=== PATIENT | male | born 1985 | race Caucasian/White ===

== ENCOUNTER 2019-02-09 08:12 | Inpatient (IN) | payer BC ==
[~2019-02-09] VITALS: Ht 172.7 cm; Wt 90.7 kg
[2019-02-09 08:20] VITALS: BP 204/96
--- NOTE | 2019-02-09 08:23 | NUR ---
Patient ambulated to bed 7. RN evaluating patient at bedside.
--- NOTE | 2019-02-09 08:45 | NUR ---
Dr. Antony is evaluating the patient at bedside.
[2019-02-09] MEDS ORDERED: METOPROLOL 5 MG/5 ML VIAL IVP ONE (09:00)
[2019-02-09] MEDS ORDERED: ONDANSETRON 4 MG/2 ML VIAL IVP ONE (09:15)
--- NOTE | 2019-02-09 09:35 | NUR ---
x ray tech at bedside.
[2019-02-09 09:39] LABS: APPEARANCE,URINE CLEAR (CLEAR); BILIRUBIN,URINE NEGATIVE (NEGATIVE); BLOOD, URINE 1+ (NEGATIVE); COLOR,URINE YELLOW (YELLOW); LEUKOCYTE ESTERASE ,URINE NEGATIVE (NEGATIVE); NITRITE, URINE NEGATIVE (NEGATIVE); UGLUCOSE 1+ (NEGATIVE)
--- NOTE | 2019-02-09 09:53 | NUR ---
CRITICAL VALUE RECEIVED, DR BEGUM REQUESTING REDRAW
[2019-02-09 09:55] LABS: ALBUMIN 2.9 g/dL (3.4-5.0); ANION GAP 21.1 (8-16); CARBON DIOXIDE 19.5 mmol/L (21-32); POTASSIUM 3.6 mmol/L (3.5-5.1); TOTAL BILIRUBIN 0.4 mg/dL (0.0-1.0)
[2019-02-09 09:58] LABS: CREATININE 13.1 mg/dL (0.7-1.3)
--- NOTE | 2019-02-09 10:18 | NUR ---
Patient returned from CT scan. RN re-evaluating patient at bedside.
[2019-02-09 10:19] LABS: RBC,URINE 0-5 /HPF (0-5); URINE AMORPHOUS URATE 1+ /HPF (None Seen); WBC,URINE 0-5 /HPF (0-5)
[2019-02-09 10:40] LABS: BASOPHILS # (AUTO) 0.1 K/uL (0.00-0.22); BASOPHILS % (AUTO) 0.9 % (0.0-2.0); EOSINOPHILS # (AUTO) 0.3 K/uL (0-0.4); EOSINOPHILS % (AUTO) 4.8 % (0.0-4.0); LYMPHOCYTES # (AUTO) 0.9 K/uL (2.0-11.5); LYMPHOCYTES % (AUTO) 12.6 % (20.5-51.1); MEAN CORPUSCULAR HEMOGLOBIN 29 pg (27-31); MEAN CORPUSCULAR HGB CONC 35 g/dL (33-37); MEAN CORPUSCULAR VOLUME 82.6 fL (80-94); MONOCYTES # (AUTO) 0.4 K/uL (0.8-1.0); MONOCYTES % (AUTO) 6.4 % (1.7-9.3); NEUTROPHILS # (AUTO) 5.1 K/uL (1.8-7.7); NEUTROPHILS % (AUTO) 75.3 % (42.2-75.2); PLATELET COUNT (AUTO) 179 K/uL (140-450); RED BLOOD CELL COUNT(AUTO) 1.82 MIL/uL (4.20-6.10); WHITE BLOOD COUNT (AUTO) 6.8 K/uL (4.8-10.8)
[2019-02-09 10:47] LABS: HEMOGLOBIN 5.3 g/dL (12.0-18.0)
--- NOTE | 2019-02-09 10:49 | NUR ---
Huong gilbert in ED - 02/09/19 at 1050 by WAYNE CRITICAL VALUE RECEIVED, DR BEGUM WILL SEE PATIENT.
--- NOTE | 2019-02-09 10:51 | NUR ---
CRITICAL VALUE RECEIVED, DR BEGUM WILL SEE PATIENT.
[2019-02-09] MEDS ORDERED: CLON0.2T43 PO (10:59)
[2019-02-09] MEDS ORDERED: CARV12.5 PO (11:00)
[2019-02-09] MEDS ORDERED: INSU100S22 SC (11:00)
[2019-02-09] MEDS ORDERED: DILT-135 (11:00)
[2019-02-09] MEDS ORDERED: FERR-13 PO (11:00)
[2019-02-09] MEDS ORDERED: hydrALAZINE 20 MG/ML VIAL IVP ONE (11:10)
--- NOTE | 2019-02-09 11:17 | NUR ---
Dr. Antony is re-evaluating the patient at bedside.
[2019-02-09] MEDS ORDERED: LORazepam 2 MG/ML VIAL IVP PRN (12:25)
[2019-02-09] MEDS ORDERED: MORPHINE SULFATE 2 MG/ML SYR IVP PRN (12:25)
[2019-02-09] MEDS ORDERED: MORPHINE SULFATE 4 MG/ML SYR IVP PRN (12:25)
[2019-02-09] MEDS ORDERED: ACETAMINOPHEN 325 MG TAB PO PRN (12:25)
[2019-02-09] MEDS ORDERED: ONDANSETRON 4 MG/2 ML VIAL IVP PRN (12:25)
[2019-02-09] MEDS ORDERED: ZOLPIDEM 5 MG TAB PO PRN (12:30)
--- NOTE | 2019-02-09 12:44 | NUR ---
Dr. Alvarenga evaluating patient at bedside.
[2019-02-09 13:00] VITALS: BP 190/90
[2019-02-09] MEDS ORDERED: DEXTROSE 50% 50 ML SYR IVP PRN (13:00)
--- NOTE | 2019-02-09 13:00 | NUR ---
RECEIVED REPORT FROM ED NURSE ZEV FOR CONTINUITY OF CARE. PT IS AAOX4, AMBULATORY AND COOPERATIVE. PT DENIES PAIN, SOB, OR CHEST PAIN. PT HAS LEFT HAND 20G IV TO INFUSE BLOOD LATER TODAY. PT SKIN IS INTACT. EXPLAINED POC TO PT AND PT VERBALIZED UNDERSTANDING. BED IN LOW POSITION, CALL LIGHT WITHIN REACH.
--- NOTE | 2019-02-09 13:05 | NUR ---
Patient will be admitted to care of DR MARTINI. Admited to TELEMETRY. Will go to room 19A. Belongings list completed. Report to GILBERTO.
[2019-02-09] MEDS ORDERED: BUMETANIDE 1 MG/4 ML VIAL IV SCH (13:30)
--- NOTE | 2019-02-09 15:06 | NUR ---
PT RESTING IN BED WITH FAMILY AT BEDSIDE. ALL NEEDS MET. WILL CONTINUE TO ROUND FREQUENTLY ON PT.
[2019-02-09] MEDS ORDERED: METOPROLOL 5 MG/5 ML VIAL IV PRN (15:40)
[2019-02-09 16:00] VITALS: BP 180/87
[2019-02-09] MEDS: BLOOD GLUCOSE MONITORING 1 DEV DEV FS SCH ×2 (16:30→20:05)
[2019-02-09] MEDS ORDERED: ALUMINUM HYD/MAG/SIMETHICONE 30 ML UDC PO PRN (17:15)
--- NOTE | 2019-02-09 17:16 | NUR ---
PT RESTING IN BED. BLOOD TRANSFUSION RUNNING AT 120ML/HR. PT TOLERATING WELL. PT DENIES ITCHING, CHILLS, BACK ACHE, PAIN OR SOB AT THIS TIME. INSTRUCTED PT TO CALL IF ANY SYMPTOMS ARISE OR IF IV PUMP BEEPS. PT VERBALIZED UNDERSTANDING. WILL CONTINUE TO ROUND FREQUENTLY ON PT.
[2019-02-09] MEDS: FERROUS SULFATE 325 MG TABEC PO SCH ×2 (17:37→20:05)
[2019-02-09] MEDS: DILTIAZEM 30 MG TAB PO SCH (17:37)
--- NOTE | 2019-02-09 19:20 | NUR ---
RECEIVED BEDSIDE REPORT FROM DAY SHIFT NURSE. PATIENT IS AWAKE, ALERT, AND COOPERATIVE. RESPIRATION EVEN UNLABORED ON ROOM AIR. NO DISTRESS NOTED. SKIN IS WARM AND DRY. IV PATENT AND INTACT. BLOOD TRANSFUSION JUST ENDED. DENIES PAIN. PLAN OF CARE WAS DISCUSSED. ALL SAFETY MEASURES IN PLACE. BED IS AT LOW POSITION. CALL LIGHT WITHIN REACH AND VERBALIZE ITS USE. WILL CONTINUE TO MONITOR.
--- NOTE | 2019-02-09 19:48 | NUR ---
ENDORSED PT TO INFLATED PAD BUFFER FOR CONTINUITY OF CARE. PT IN STABLE CONDITION AT THIS TIME.
[2019-02-09 20:00] VITALS: BP 192/84
--- NOTE | 2019-02-09 20:00 | NUR ---
ALL SCHEDULED MEDS WERE GIVEN PER ORDER. PATIENT WILL RECEIVED 2ND BAG OF BLOOD TRANSFUSION. BP IS HIGH WILL NOTIFY THE MD. WILL CONTINUE TO MONITOR.
[2019-02-09] MEDS: cloNIDine 0.1 MG TAB PO SCH (20:04)
[2019-02-09] MEDS: CARVEDILOL 12.5 MG TAB PO SCH (20:05)
--- NOTE | 2019-02-09 20:30 | NUR ---
2ND BAG OF TRANSFUSION STARTED. NO ASE NOTED. WILL CONTINUE TO MONITOR.
--- NOTE | 2019-02-09 21:30 | NUR ---
2ND BAG OF TRANSFUSION STARTED. NO ASE NOTED. WILL CONTINUE TO MONITOR. Addendum: 02/09/19 at 2213 by Lisa Hodgson RN WRONG TIME
[2019-02-09] MEDS ORDERED: amLODIPine 5 MG TAB PO SCH (22:00)
--- NOTE | 2019-02-09 22:13 | NUR ---
CHECKED ON PATIENT. PATIENT IN BED WATCHING TV RESPIRATION EVEN UNLABORED ON ROOM AIR. BLOOD TRANSFUSION STILL BEING INFUSED. NO DISTRESS NOTED. WILL CONTINUE TO MONITOR.
--- NOTE | 2019-02-09 23:40 | NUR ---
2ND UNIT OF BLOOD TRANSFUSION DONE. NO ASE NOTED. WILL INFUSED THE 3RD UNIT PER ORDER. WILL CONTINUE TO MONITOR.
[2019-02-10] VITALS: BP 152/75
--- NOTE | 2019-02-10 | NUR ---
VITALS WERE TAKEN. PATIENT IN STABLE CONDITION. PATIENT COMPLAINED OF NOT BEING ABLE TO SLEEP FOR THE PAST FEW DAYS. PATIENT ASK FOR SLEEPING AID. PRN AMBIEN GIVEN PER ORDER. WILL CONTINUE TO MONITOR.
--- NOTE | 2019-02-10 00:35 | NUR ---
3RD UNIT OF BLOOD STARTED. WILL CONTINUE TO MONITOR.
--- NOTE | 2019-02-10 02:30 | NUR ---
CHECKED ON PATIENT. PATIENT SLEEPING RESPIRATION EVEN UNLABORED ON ROOM AIR. NO DISTRESS NOTED. WILL CONTINUE TO MONITOR.
--- NOTE | 2019-02-10 03:30 | NUR ---
BLOOD TRANSFUSION ENDED. NO ADVERSE REACTION FROM THE BLOOD. WILL CONTINUE TO MONITOR
[2019-02-10 04:00] VITALS: BP 158/68
--- NOTE | 2019-02-10 04:01 | NUR ---
VITALS WERE TAKEN. PATIENT IN STABLE CONDITION. NO DISTRESS NOTED. WILL CONTINUE TO MONITOR.
[2019-02-10] MEDS: DILTIAZEM 30 MG TAB PO SCH ×5 (06:12→23:59)
[2019-02-10] MEDS: BLOOD GLUCOSE MONITORING 1 DEV DEV FS SCH ×4 (06:32→21:30)
[2019-02-10 06:42] LABS: ALBUMIN 2.5 g/dL (3.4-5.0); MAGNESIUM 1.5 mg/dL (1.8-2.4); TOTAL BILIRUBIN 0.6 mg/dL (0.0-1.0)
--- NOTE | 2019-02-10 07:18 | NUR ---
ENDORSED PATIENT TO DAY SHIFT NURSE. PATIENT IN STABLE CONDITION.
--- NOTE | 2019-02-10 07:19 | NUR ---
Received bedside report from pm nurse Gonzalez. Pt sitting up in bed, no signs of distress, no c/o discomfort. Left hand IV saline lock intact & asymptomatic. Call light within reach.
[2019-02-10 07:20] LABS: BASOPHILS % (AUTO) 0.8 % (0.0-2.0); EOSINOPHILS # (AUTO) 0.2 K/uL (0-0.4); EOSINOPHILS % (AUTO) 2.5 % (0.0-4.0); HEMATOCRIT 21.7 % (36-52); HEMOGLOBIN 7.5 g/dL (12.0-18.0); LYMPHOCYTES % (AUTO) 14.8 % (20.5-51.1); MEAN CORPUSCULAR HEMOGLOBIN 29 pg (27-31); MEAN CORPUSCULAR HGB CONC 35 g/dL (33-37); MEAN CORPUSCULAR VOLUME 83.7 fL (80-94); MONOCYTES # (AUTO) 0.5 K/uL (0.8-1.0); MONOCYTES % (AUTO) 8.3 % (1.7-9.3); NEUTROPHILS # (AUTO) 4.8 K/uL (1.8-7.7); NEUTROPHILS % (AUTO) 73.6 % (42.2-75.2); PLATELET COUNT (AUTO) 163 K/uL (140-450); RED BLOOD CELL COUNT(AUTO) 2.59 MIL/uL (4.20-6.10); RED CELL DISTRIBUTION WIDTH 14.5 % (11.6-13.7); WHITE BLOOD COUNT (AUTO) 6.6 K/uL (4.8-10.8)
[2019-02-10 07:24] LABS: CARBON DIOXIDE 19.8 mmol/L (21-32); CREATININE 13.2 mg/dL (0.7-1.3); POTASSIUM 3.7 mmol/L (3.5-5.1)
[2019-02-10 07:25] LABS: ANION GAP 18.9 (8-16)
--- NOTE | 2019-02-10 07:45 | NUR ---
Spoke to Dr Dunn on the phone re: lab results (BUN - 1.4, Cr - 13.2, Mg - 1.5) New order received for Mg-rider. Noted & carried out. Physician to discuss labs with pt during hospital visit today.
[2019-02-10 08:00] VITALS: BP 184/91
[2019-02-10] MEDS ORDERED: MAG SULF 2000 MG/WATER PREMIX 50 ML IV SCH ×2 (08:00→11:00)
[2019-02-10] MEDS: CARVEDILOL 12.5 MG TAB PO SCH ×2 (08:21→21:53)
[2019-02-10] MEDS: cloNIDine 0.1 MG TAB PO SCH ×2 (08:21→21:53)
[2019-02-10] MEDS: FERROUS SULFATE 325 MG TABEC PO SCH ×4 (08:21→21:52)
[2019-02-10] MEDS ORDERED: amLODIPine 5 MG TAB PO SCH (09:00)
--- NOTE | 2019-02-10 09:18 | NUR ---
PATIENT HAS BEEN SCREENED AND CATEGORIZED HIGH NUTRITION RISK. PATIENT WILL BE SEEN WITHIN 1-2 DAYS OF ADMISSION. 02/10/19-02/11/[address]
--- NOTE | 2019-02-10 09:39 | NUR ---
Dr Alvarenga spoke with pt & states pt has agreed to hemodialysis but is requesting to be transferred to [facility] d/t insurance issues. Per Dr Alvarenga, if hemodialysis is approved in facility, will need tunneled central cath placement with surgeon. Will need to keep pt NPO until further notice. Pt verbalized understanding & agree with POC. Social service present and aware of pt needs at this time.
[2019-02-10] MEDS: SODIUM BICARBONATE 650 MG TAB PO SCH ×2 (09:45→21:52)
[2019-02-10] MEDS: cloNIDine 0.1 MG TAB PO PRN ×2 (10:14→16:39)
--- NOTE | 2019-02-10 10:51 | NUR ---
Watch Inspector Final Movement Note: Basic Screen: Yes High Risk DC Screen [place]: CIERRA [place]ings[place] Relationship: BROTHER Pre-Admission Living Arrangements: Lives with Other Prior ADL Independent Current Home Health Name/Tel: N/A Current DME/02 Name/Tel: N/A Current Hospice Name/Tel: N/A Current Dialysis Name/Tel: N/A Healthcare Decision Maker: Patient Advance Directive No - REFUSED Physician Orders for Life Sustaining Treatment Form No Patient/Family Have Educational Needs No Information Taught: Advance Directive Community Resources Person Taught: Patient Teaching Tools: Verbal Factors Affecting Learning: None Participation Level: Refused Evaluation: Verbalizes Understanding Needs Additional Education: No Discipline: Case Mgt/Social Svcs Tentative Discharge Plan/Destination: No Needs Identified Will require assistance post discharge: No Referred to Resource Specialist: No Tentative Discharge Plan Summary: Patient is a 34 year old male admitted for severe anemia. Patient was admitted from home. Patient has past medical hx of CHF, HTN, chronic renal insuff, and diabetes. SW verified demographics with patient. Patient stated his PCP is Dr. Radha Hodge and he was last seen six months ago. Patient denied mental health history, SI/HI, and substance abuse history. Patient's tentative plan after discharge is to return home. No further needs identified. Signature: ELOISA Khoury Date: Feb 10, 2019 Time: 10:50
[2019-02-10 12:00] VITALS: BP 158/84
[2019-02-10] MEDS: INSULIN LISPRO SLIDING SCALE 100 UNITS/ML VIAL SUBQ PRN ×2 (12:22→21:57)
--- NOTE | 2019-02-10 12:37 | NUR ---
Methods Engineer Note: Per , patient is concerned about his health insurance not covering dialysis treatment during hospitalization at [facility] and prefers to be transferred to [facility], I informed both Methods Engineer Frank and Warehouse Pricing And Inventory Clerk Melvi of above information, Methods Engineer and/or Warehouse Pricing And Inventory Clerk will follow up regarding patient's concern. Addendum: 02/10/19 at 1337 by Frank Chaparro SS SHAQUILLE spoke with patient regarding dialysis treatment. SHAQUILLE explained to patient that [facility] is contracted with [facility], per Fan Balancer Lena. Patient agreed to receive dialysis. SHAQUILLE informed Charge Nurse Estuardo.
--- NOTE | 2019-02-10 14:00 | NUR ---
02/10/19 RD INITIAL ASSESSMENT COMPLETED PLEASE REFER TO NUTRITION ASSESSMENT UNDER CARE ACTIVITY FOR ESTIMATED NUTRITIONAL NEEDS. 1. CONTINUE NPO TOLERATED 2. IF/WHEN MEDICALLY STABLE TO BEGIN NUTRITION CONSIDER ADVANCE DIET TOLERATED TO 60G CCHO, RENAL DIET 3. RECOMMEND NEPRO BID IF/WHEN MEDICALLY STABLE TO BEGIN NUTRITION 4. NUTRITION EDUCATION ON RENAL/DM MANAGEMENT WAS GIVEN TO PATIENT 5. RD TO FOLLOW-UP 2-3 DAYS, HIGH RISK NAINA MENDOZA, RD
--- NOTE | 2019-02-10 15:00 | NUR ---
Received phone call from Dr. Fam with request to obtain consent for tunneled dialysis permacath placement. Per dr, will schedule procedure this pm. Pt agree with POC.
--- NOTE | 2019-02-10 15:38 | NUR ---
DC PLANNING 34 YRS OLD MALE PATIENT ADMITTED FROM HOME WITH A DX OF SEVER ANEMIA HEMOGLOBIN 5 . PT HAS A HX OF CAD REFUSED HEMODIALYSIS ,DM AND CHF. TRANSFUSED 3 UNITS PRBC , NEPHRO EVALUATION. DC PLAN WITH RECOMMENDATION OF FACILITIES FLIGHT CHECK PILOT. CM TO FOLLOW Addendum: 02/10/19 at 1558 by Lena Graham CM Sw was informed about pt's concerns in regards to coverage at [facility]. Trang reviewed BAR notes, HUMBERTO and health plan notified according to the notes at . Trang called this number which is for [facility]; spoke with JESUS Ravi who stated this is not their member and they have record of any admission. Trang met with the admitting team who re-verified patient's insurance and clarified the patient is assigned to [facility] and the number to call is . Trang called [employer] and spoke to Tiffanie, reference #[id number] who indicated the patient doesn't have ON benefits and if admitted due to an emergency services will be covered at the tier 1 level (100%). Trang inquired if clinicals were received and/or an auth was issued. Sw was transferred to the pre-auth department ; spoke with Cononr who stated they don't have record of the pt's admission to [place] and subsequently there's no auth on file. Connor is requesting a face sheet to be faxed to to initiate the process. Remote team informed. Lena Grhaam, [facility] Ext [phone] Addendum: 02/11/19 at 1118 by Melvi Chen CM DC PLANNING CALLED [facility] [phone] SPOKE WITH LUPIS , STATED [facility] GET 100% COVERAGE AND NO NEED TO TRANSFER TO ANOTHER [facility] AUTH# [id number] FOR HOSPITAL STAY. AUTHORIZATION DEPARTMENT NUMBER [id number] Addendum: 02/11/19 at 1130 by Melvi Chen CM DC PLANNING HEMODIALYSIS DONE YESTERDAY 02/10/19 WITH ANNA CATH. TUNNELED CATH TO BE INSERTED BY DR JUAN A MIJARES AND HD PER ENDER BYRD PLAN TO ARRANGE OUTPATIENT DIALYSIS WITH IVANA LEE TO F/U Addendum: 02/11/19 at 1421 by Melvi Chen CM DC PLANNING PER DR NEVAREZ IT CAN BE ARRANGED WITH [facility]. SPOKE WITH KALEB AT [facility] AND FAXED ALL THE PAPER WORK CM TO FOLLOW Addendum: 02/11/19 at 1449 by Melvi Chen CM DC PLANNING: RECEIVED A CALL FROM KALEB STATED PT IS ACCEPTED AT [facility] [address] [place] [id number] SCHEDULE M-W- FROM 1:45 -5:45 PHONE NUMBER [phone] FACILITIES FLIGHT CHECK PILOT IS DR CADENA .
[2019-02-10 16:00] VITALS: BP 174/91
[2019-02-10] MEDS ORDERED: BUPIVACAINE-MPF/EPI 0.25% 30 ML VIAL INJ ONE (16:50)
[2019-02-10] MEDS ORDERED: LIDOCAINE/EPI MPF 1%1:200000 30 ML VIAL INJ ONE (16:50)
--- NOTE | 2019-02-10 17:00 | NUR ---
Pt left unit via hospital bed for permacath placement. Informed OR nurse Lucinda & Fatou that pt had elevated BP & received clonidine @ 1639, need monitoring of BP. Pt aaox4 upon departure from unit, no signs of distress.
--- NOTE | 2019-02-10 17:15 | NUR ---
Received phone call from Fatou OR nurse stating tunneled cath placement is discontinued by Dr Fam, & will place George cath instead. Pt still in Periop.
[2019-02-10] MEDS ORDERED: LORazepam 2 MG/ML VIAL ONE (17:22)
[2019-02-10] MEDS ORDERED: LORazepam 2 MG/ML VIAL IVP SCH (17:38)
--- NOTE | 2019-02-10 18:10 | NUR ---
Pt came back to room 119B via hospital bed. Report received from OR nurse Fatou. Pt slightly drowsy, oriented x4. Right jugular George cath 2-lumen in place. Left hand IV saline lock intact & asymptomatic. Call light within reach.
--- NOTE | 2019-02-10 19:00 | NUR ---
Received hemodialysis order from Dr Alvarenga. Dialysis nurse at bedside notified & will initiate tx. Pt verbalize understanding of procedure & agree with POC.
--- NOTE | 2019-02-10 19:20 | NUR ---
Report given to pm nurse Lisa. Pt resting in bed, no signs of distress, dialysis nurse at bedside to initiate tx. Call light within reach.
--- NOTE | 2019-02-10 19:25 | NUR ---
RECEIVED BEDSIDE REPORT FROM DAY SHIFT NURSE. PATIENT IS AWAKE, ALERT, AND COOPERATIVE. RESPIRATION EVEN UNLABORED ON ROOM AIR. NO DISTRESS NOTED. SKIN IS WARM AND DRY. IV PATENT AND INTACT. ANNA CATHETER RIGHT SIDE NOTED. PATIENT IS ABOUT TO GET DIALYSIS. PLAN OF CARE WAS DISCUSSED. ALL SAFETY MEASURES IN PLACE. BED IS AT LOW POSITION. CALL LIGHT WITHIN REACH AND VERBALIZES ITS USE. WILL CONTINUE TO MONITOR.
[2019-02-10 20:00] VITALS: BP 182/88
--- NOTE | 2019-02-10 20:10 | NUR ---
INITIAL ASSESSMENT DONE. VITALS WERE TAKEN. PATIENT IS GETTING DIALYSIS TREATMENT. DIALYSIS NURSE AT BEDSIDE. NO DISTRESS NOTED. WILL CONTINUE TO MONITOR.
--- NOTE | 2019-02-10 21:45 | NUR ---
DIALYSIS DONE. PATIENT TOLERATED IT WELL. PATIENT OUTPUT 500 ML.
--- NOTE | 2019-02-10 21:55 | NUR ---
ALL SCHEDULED MEDS WERE GIVEN PER ORDER. NO ASE NOTED. WILL CONTINUE TO MONITOR.
--- NOTE | 2019-02-10 22:44 | NUR ---
PATIENT IS BLEEDING FROM ANNA CATHETER. APPLIED PRESSURE AND CHANGED DRESSING.
--- NOTE | 2019-02-10 22:45 | NUR ---
DR. VELAZCO AT BEDSIDE ASSESSING PATIENT ANNA CATHETER. BLEEDING STOP. WILL CONTINUE TO MONITOR.
--- NOTE | 2019-02-10 22:58 | NUR ---
PATIENT COMPLAINED OF PAIN FROM THE ANNA CATHETER SITE 09/08. PRN PAIN MEDS ADMINISTERED PER ORDER. WILL CONTINUE TO MONITOR.
--- NOTE | 2019-02-10 23:10 | NUR ---
CHECKED PATIENT. ANNA CATHETER. PATIENT DRESSING NOTED WITH MODERATE SANGUINEOUS. CHANGED DRESSING AND APPLIED PRESSURE. WILL CONTINUE TO MONITOR.
[2019-02-11] VITALS (9 sets, daily range): BP systolic 142–198; BP diastolic 75–99
--- NOTE | 2019-02-11 | NUR ---
VITALS WERE TAKEN. PATIENT IN STABLE CONDITION. WILL CONTINUE TO MONITOR.
--- NOTE | 2019-02-11 01:53 | NUR ---
CHECKED ON PATIENT. PATIENT SLEEPING RESPIRATION EVEN UNLABORED ON ROOM AIR. NO DISTRESS NOTED. CHECKED ANNA CATHETER SITE. MINIMAL DRAINAGE NOTED. WILL CONTINUE TO MONITOR.
--- NOTE | 2019-02-11 04:00 | NUR ---
VITALS WERE TAKEN. PATIENT IN STABLE CONDITION. NO DISTRESS NOTED. WILL CONTINUE TO MONITOR.
[2019-02-11] MEDS: DILTIAZEM 30 MG TAB PO SCH (06:00)
[2019-02-11 06:07] LABS: HEPATITIS B SURFACE ANTIBODY Reactive (.); HEPATITIS B SURFACE ANTIGEN Negative (Negative)
--- NOTE | 2019-02-11 06:22 | NUR ---
PATIENT IN BED WATCHING TV RESPIRATION EVEN UNLABORED ON ROOM AIR. NO DISTRESS NOTED. WILL CONTINUE TO MONITOR.
[2019-02-11] MEDS: BLOOD GLUCOSE MONITORING 1 DEV DEV FS SCH ×4 (06:37→21:08)
--- NOTE | 2019-02-11 07:11 | NUR ---
ENDORSED PATIENT TO DAY SHIFT NURSE. PATIENT IN STABLE CONDITION
--- NOTE | 2019-02-11 07:15 | NUR ---
Received report from pm nurse Gonzalez. Pt sitting up in bed, aaox4, no signs of distress. Right jugular George cath in place with min sanguineous drainage present in dressing. Call light within reach. Will cont to monitor.
[2019-02-11] MEDS: CARVEDILOL 12.5 MG TAB PO SCH ×2 (07:33→21:06)
[2019-02-11] MEDS: cloNIDine 0.1 MG TAB PO SCH ×2 (07:37→21:08)
--- NOTE | 2019-02-11 07:40 | NUR ---
0900 BP meds clonidine & carvedilol administered for BP 198/99. Pt sitting up in chair at bedside, c/o 2/10 headache. Minimized stimulation by dimming lights in room and providing quiet environment. Call light within reach. Will cont to monitor.
--- NOTE | 2019-02-11 08:00 | NUR ---
Report given to Elida QEUSADA.
--- NOTE | 2019-02-11 08:01 | NUR ---
RECEIVED BEDSIDE REPORT FROM DANIELLE. PATIENT IS AWAKE, ALERT AND ORIENTEDX4. NO SIGNS OF DISTRESS ON RA. SKIN IS INTACT. IV ON L HAND 20G SL. CLEAN, DRY AND INTACT. YAN CASTILLO CATH. CLEAN, DRY AND INTACT. PATIENT IS AMBULATORY. CONTINENT. ABLE TO MAKE NEEDS KNOWN BED IN LOW POSITION. CALL LIGHT WITHIN REACH, WILL CONTINUE TO MONITOR THE PATIENT.
[2019-02-11] MEDS: SODIUM BICARBONATE 650 MG TAB PO SCH (08:29)
[2019-02-11] MEDS: FERROUS SULFATE 325 MG TABEC PO SCH ×4 (08:29→21:08)
--- NOTE | 2019-02-11 08:35 | NUR ---
ADMINISTERED MEDS AND PRN NAUSEA MED. PATIENT FEELS NAUSEATED. EDUCATED ON SIDE EFFECTS. WILL CONTINUE TO MONITOR THE PATIENT. PATIENT SITTING IN CHAIR AT THIS TIME
[2019-02-11 09:08] LABS: BASOPHILS # (AUTO) 0.1 K/uL (0.00-0.22); BASOPHILS % (AUTO) 1.2 % (0.0-2.0); EOSINOPHILS # (AUTO) 0.2 K/uL (0-0.4); EOSINOPHILS % (AUTO) 2.8 % (0.0-4.0); HEMATOCRIT 23.2 % (36-52); HEMOGLOBIN 8.2 g/dL (12.0-18.0); LYMPHOCYTES # (AUTO) 0.5 K/uL (2.0-11.5); LYMPHOCYTES % (AUTO) 6.1 % (20.5-51.1); MEAN CORPUSCULAR HEMOGLOBIN 30 pg (27-31); MEAN CORPUSCULAR HGB CONC 35 g/dL (33-37); MEAN CORPUSCULAR VOLUME 83.4 fL (80-94); MONOCYTES # (AUTO) 0.7 K/uL (0.8-1.0); MONOCYTES % (AUTO) 7.5 % (1.7-9.3); NEUTROPHILS # (AUTO) 7.1 K/uL (1.8-7.7); NEUTROPHILS % (AUTO) 82.4 % (42.2-75.2); PLATELET COUNT (AUTO) 185 K/uL (140-450); RED BLOOD CELL COUNT(AUTO) 2.78 MIL/uL (4.20-6.10); RED CELL DISTRIBUTION WIDTH 14.9 % (11.6-13.7); WHITE BLOOD COUNT (AUTO) 8.7 K/uL (4.8-10.8)
[2019-02-11 09:24] LABS: ANION GAP 11.8 (8-16); CARBON DIOXIDE 27.8 mmol/L (21-32); POTASSIUM 3.6 mmol/L (3.5-5.1)
[2019-02-11 09:28] LABS: CREATININE 9.7 mg/dL (0.7-1.3); TOTAL BILIRUBIN 0.5 mg/dL (0.0-1.0)
[2019-02-11 09:29] LABS: ALBUMIN 2.6 g/dL (3.4-5.0)
--- NOTE | 2019-02-11 09:29 | NUR ---
B/P STILL ELEVATED. WILL REASSESS B/P AGAIN AND GIVE PRN B/P MED NEEDED.
--- NOTE | 2019-02-11 10:23 | NUR ---
ANNA CATH IS BLOODY. CHANGED THE DRESSING USING STERILE TECHNIQUE. PATIENT TOLERATED WELL
--- NOTE | 2019-02-11 10:55 | NUR ---
SPOKE TO DR MALHOTRA HE SAID TO CALL THE DIALYSIS NURSE TO DO DIALYSIS TODAY FOR PT. [facility], SHE SAID SHE WILL HAVE SOMEONE DO DIALYSIS SOON
[2019-02-11] MEDS: cloNIDine 0.1 MG TAB PO PRN (12:45)
[2019-02-11] MEDS: INSULIN LISPRO SLIDING SCALE 100 UNITS/ML VIAL SUBQ PRN ×3 (12:47→21:11)
--- NOTE | 2019-02-11 12:48 | NUR ---
ADMINISTERED MEDS. PATIENT TOLERATED WELL. EDUCATED ON SIDE EFFECTS. WILL CONTINUE TO MONITOR THE PATIENT. DIALYSIS NURSE SAID SHE WILL BE HERE AT 1500
--- NOTE | 2019-02-11 14:01 | NUR ---
PATIENT IN NO DISTRESS. WILL CONTINUE TO MONITOR
--- NOTE | 2019-02-11 15:01 | NUR ---
GAVE BEDSIDE REPORT TO DANIELLE. PATIENT IN STABLE CONDITION
--- NOTE | 2019-02-11 15:02 | NUR ---
Received report from Elida QUESADA. Pt resting in bed, no signs of distress, no c/o discomfort/pain. Dialysis nurse arrived at bedside to initiate treatment. Call light within reach.
--- NOTE | 2019-02-11 16:20 | NUR ---
Received telephone order from Dr Dunn for enalapril & metoprolol d/t elevated BP. Orders noted & carried out. Pt currently resting in bed, no c/o discomfort, hemodialysis ongoing with dialysis nurse at bedside.
[2019-02-11] MEDS ORDERED: METOPROLOL 5 MG/5 ML VIAL IV SCH (16:25)
[2019-02-11] MEDS ORDERED: ENALAPRIL 10 MG TAB PO SCH (16:43)
[2019-02-11] MEDS ORDERED: amLODIPine 5 MG TAB PO SCH (18:35)
[2019-02-11] MEDS ORDERED: CARVEDILOL 12.5 MG TAB PO SCH (18:35)
--- NOTE | 2019-02-11 18:35 | NUR ---
Received orders from Dr Chandler re: persistent HTN. All orders noted & carried out. Pt currently resting in bed, no c/o pain/discomfort, no signs of distress. Call light within reach. Right jugular George cath dressing with min sanguineous drainage. Dialysis nurse in unit notified & assessed site. Per dialysis nurse, no active bleeding at this time.
--- NOTE | 2019-02-11 19:10 | NUR ---
Report given to pm nurse Kyung.
--- NOTE | 2019-02-11 19:15 | NUR ---
RECEIVED FROM AM RN SITTING UP IN A CHAIR. NO SOB. NO COMPLAINTS OF ANY PAIN. ANNA CATHETER TO RIJ IN PLACE AND NO ACTIVE BLEEDING NOTED. CARE PLANS FOR THE NIGHT DISCUSSED WITH HIM AND CALL LIGHT USE DISCUSSED WITH HIM TOO. ENCOURAGE TO USE CALL LIGHT FOR ANY HELP HE MAY NEED OR IF IN PAIN.
--- NOTE | 2019-02-11 22:00 | NUR ---
CHECKED ON PT. AND SITTING IN CHAIR. STATED HE WANTS TO SIT WATCHING TV. NOT READY TO SLEEP PER PT. CALL LIGHT WITH IN REACH. NO SOB. TELEMETRY MONITORING.
[2019-02-11] MEDS ORDERED: hydrALAZINE 20 MG/ML VIAL IVP PRN (22:10)
--- NOTE | 2019-02-12 | NUR ---
SLEEPING AT THIS TIME. VITAL SIGNS TAKEN. NO COMPLAINTS OF ANY PAIN DONE. CALL LIGHT WITH IN REACH.
[2019-02-12 01:36] VITALS: BP 131/86
--- NOTE | 2019-02-12 01:38 | NUR ---
SLEEPING AT THIS TIME. NO RESTLESSNESS NOTED.
[2019-02-12 04:16] VITALS: BP 155/79
--- NOTE | 2019-02-12 05:35 | NUR ---
PT. SLEEPING WELL. BLOOD SUGAR CHECKED . NO S/S OF HYPOGLYCEMIA. DRESSING TO RIJ REFUSED BY PT. RT "IT WILL BE REMOVED LATER ANYWAY" CHARGE NURSE AWARE.
[2019-02-12 06:59] LABS: BASOPHILS # (AUTO) 0.1 K/uL (0.00-0.22); EOSINOPHILS # (AUTO) 0.4 K/uL (0-0.4); EOSINOPHILS % (AUTO) 5.8 % (0.0-4.0); HEMATOCRIT 21.3 % (36-52); HEMOGLOBIN 7.3 g/dL (12.0-18.0); LYMPHOCYTES # (AUTO) 1.1 K/uL (2.0-11.5); LYMPHOCYTES % (AUTO) 16.5 % (20.5-51.1); MEAN CORPUSCULAR HEMOGLOBIN 29 pg (27-31); MEAN CORPUSCULAR HGB CONC 34 g/dL (33-37); MEAN CORPUSCULAR VOLUME 84.5 fL (80-94); MONOCYTES # (AUTO) 0.8 K/uL (0.8-1.0); MONOCYTES % (AUTO) 11.9 % (1.7-9.3); NEUTROPHILS # (AUTO) 4.4 K/uL (1.8-7.7); NEUTROPHILS % (AUTO) 64.8 % (42.2-75.2); PLATELET COUNT (AUTO) 167 K/uL (140-450); RED BLOOD CELL COUNT(AUTO) 2.52 MIL/uL (4.20-6.10); RED CELL DISTRIBUTION WIDTH 14.9 % (11.6-13.7); WHITE BLOOD COUNT (AUTO) 6.8 K/uL (4.8-10.8)
--- NOTE | 2019-02-12 07:14 | NUR ---
RECEIVED REPORT FROM NIGHT NURSE. PT AAOX4 SITTING IN CHAIR WATCHING TV. DENIES PAIN, NO DISTRESS NOTED. R NECK ANNA CATH DRESSING SOILED WITH BLOOD, PLAN IS TO REMOVE AND INSERT TUNNEL CATH AT 1245 TODAY. RESPIRATIONS EVEN AND UNLABORED ON ROOM AIR, CLEAR BREATH SOUNDS. SKIN INTACT. IV SIGHT PATENT AND ASYMPTOMATIC SALINE LOCKED IN L HAND 20G. SAFETY MEASURES IN PLACE. BED IN LOW POSITION. CALL LIGHT WITHIN REACH. WILL CONTINUE TO MONITOR.
[2019-02-12 07:26] LABS: ANION GAP 12.1 (8-16); CARBON DIOXIDE 28.1 mmol/L (21-32); POTASSIUM 3.2 mmol/L (3.5-5.1)
[2019-02-12 07:27] LABS: ALBUMIN 2.4 g/dL (3.4-5.0); CREATININE 7.2 mg/dL (0.7-1.3); TOTAL BILIRUBIN 0.5 mg/dL (0.0-1.0)
[2019-02-12] MEDS: BLOOD GLUCOSE MONITORING 1 DEV DEV FS SCH ×3 (07:30→15:47)
[2019-02-12 07:58] VITALS: BP 163/76
[2019-02-12] MEDS: cloNIDine 0.1 MG TAB PO SCH (08:49)
[2019-02-12] MEDS: FERROUS SULFATE 325 MG TABEC PO SCH ×2 (08:50→12:00)
[2019-02-12] MEDS: CARVEDILOL 12.5 MG TAB PO SCH (08:50)
--- NOTE | 2019-02-12 08:54 | NUR ---
MEDICATIONS ADMINISTERED PER ORDER. PT TOLERATED WELL. NO DISTRESS NOTED. DENIES PAIN AT THIS TIME. WILL CONTINUE TO MONITOR.
[2019-02-12] MEDS ORDERED: amLODIPine 5 MG TAB PO SCH ×2 (09:00)
[2019-02-12] MEDS ORDERED: ENALAPRIL 10 MG TAB PO SCH (09:00)
[2019-02-12] MEDS ORDERED: CARVEDILOL 12.5 MG TAB PO SCH (09:00)
[2019-02-12] MEDS ORDERED: KCL 20 MEQ/WATER INJ PREMIX 100 ML IV SCH (11:00)
--- NOTE | 2019-02-12 11:30 | NUR ---
PT TRANSPORTED OFF UNIT AT THIS TIME FOR PROCEDURE IN OR.
[2019-02-12] MEDS ORDERED: LIDOCAINE 1% 500 MG/50 ML VIAL ONE (11:33)
[2019-02-12] MEDS ORDERED: BUPIVACAINE-MPF/EPI 0.25% 30 ML VIAL INJ ONE (11:33)
[2019-02-12] MEDS ORDERED: fentaNYL 0.05 MG/ML VIAL ONE (11:50)
[2019-02-12 12:00] VITALS: BP 142/70
[2019-02-12] MEDS ORDERED: PROPOFOL 200 MG/20 ML VIAL IV ONE (12:04)
[2019-02-12] MEDS ORDERED: BLOOD GLUCOSE MONITORING 1 DEV DEV FS SCH (12:25)
[2019-02-12] MEDS ORDERED: HYDROmorphone 1 MG/ML AMP IVP PRN (12:25)
[2019-02-12] MEDS ORDERED: ONDANSETRON 4 MG/2 ML VIAL IVP PRN (12:25)
[2019-02-12] MEDS ORDERED: ceFAZolin 1,000 MG VIAL ONE (12:36)
--- NOTE | 2019-02-12 13:14 | NUR ---
02/12/19 RD FOLLOW UP COMPLETED PLEASE REFER TO NUTRITION ASSESSMENT UNDER CARE ACTIVITY FOR ESTIMATED NUTRITIONAL NEEDS. 1. RECOMMEND RENAL AND CCHO 60GM DIET TOLERATED 2. NUTRITION EDUCATION ON RENAL/DM MANAGEMENT WAS GIVEN TO PATIENT 3. RD TO FOLLOW-UP 3-5 DAYS, MODERATE RISK NAINA MENDOZA, RD
--- NOTE | 2019-02-12 14:30 | NUR ---
PT RETURNS TO UNIT AT THIS TIME FROM OR. VITAL SIGNS STABLE. PT REQUESTS PRN MORPHINE AT THIS TIME FOR PAIN. SAFETY MEASURES IN PLACE. CALL LIGHT WITHIN REACH. WILL CONTINUE TO MONITOR.
[2019-02-12 16:00] VITALS: BP 163/77
--- NOTE | 2019-02-12 16:45 | NUR ---
PT READY TO BE DISCHARGED HOME AT THIS TIME. DISCHARGE AND FOLLOWUP EDUCATION GIVEN. INSTRUCTED ON UPCOMING HEMODIALYSIS APPOINTMENTS SET FOR M/W/. PT VERBALIZES UNDERSTANDING. DISCHARGE PAPERWORK GIVEN AND COPIES SIGNED. IV SITE REMOVED WITH MINIMAL BLOOD LOSS AND LUMEN INTACT. RESPIRATIONS EVEN AND UNLABORED ON ROOM AIR. SKIN INTACT. PT DENIES PAIN UPON DISCHARGE. ID BANDS REMOVED. BELONGINGS CHECKED AND RETURNED TO PT. PT ESCORTED OFF UNIT ON FOOT AND LEFT IN PRIVATE VEHICLE.
== END 2019-02-12 16:45 | disposition home or self-care (01) | DRG 674 ==
LOC: MED 08:12 → MTU 12:27
PROVIDERS: ADMIT Internal Medicine Pulmonary Disease; ATTEND Internal Medicine Pulmonary Disease
PROC: 30233N1 Transfusion of Nonautologous Red Blood Cells into Peripheral Vein, Percutaneous Approach (ICD-10-PCS; 2019-02-09)
PROC: 02HV33Z Insertion of Infusion Device into Superior Vena Cava, Percutaneous Approach (ICD-10-PCS; 2019-02-10)
PROC: B548ZZA Ultrasonography of Superior Vena Cava, Guidance (ICD-10-PCS; 2019-02-10)
PROC: 5A1D70Z Performance of Urinary Filtration, Intermittent, Less than 6 Hours Per Day (ICD-10-PCS; 2019-02-10)
PROC: 5A1D70Z Performance of Urinary Filtration, Intermittent, Less than 6 Hours Per Day (ICD-10-PCS; 2019-02-11)
PROC: 02HV33Z Insertion of Infusion Device into Superior Vena Cava, Percutaneous Approach (ICD-10-PCS; 2019-02-12)
PROC: B5181ZA Fluoroscopy of Superior Vena Cava using Low Osmolar Contrast, Guidance (ICD-10-PCS; 2019-02-12)
PROC: B548ZZA Ultrasonography of Superior Vena Cava, Guidance (ICD-10-PCS; 2019-02-12)
PROC: 02PYX3Z Removal of Infusion Device from Great Vessel, External Approach (ICD-10-PCS; 2019-02-12)
PROC: 0JH63XZ Insertion of Tunneled Vascular Access Device into Chest Subcutaneous Tissue and Fascia, Percutaneous Approach (ICD-10-PCS; principal; 2019-02-12 12:45)
DX: N17.9 Acute kidney failure, unspecified (principal); E87.2 Acidosis; I13.2 Hypertensive heart and chronic kidney disease with heart failure and with stage 5 chronic kidney disease, or end stage renal disease; N18.6 End stage renal disease; D64.9 Anemia, unspecified; E11.22 Type 2 diabetes mellitus with diabetic chronic kidney disease; I50.9 Heart failure, unspecified; E78.5 Hyperlipidemia, unspecified; E83.51 Hypocalcemia; E66.9 Obesity, unspecified; K52.9 Noninfective gastroenteritis and colitis, unspecified; Z79.4 Long term (current) use of insulin; Z79.899 Other long term (current) drug therapy; Z68.30 Body mass index [BMI] 30.0-30.9, adult
CPT/HCPCS: 36415; 36569; 71045; 80053; 81001; 82948; 83690; 83735; 83880; 84484; 85025; 86592; 86706; 86803; 86886; 86900; 86901; 86920; 87081; 87340; 93005; 96374; 96375; 99285; C1894; J0360; J0690; J1644; J1815; J2001; J2060; J2270; J2405; J2704; J3010; J3475; J3480; J3490; J7030; P9016; Q0092

== ENCOUNTER 2019-08-03 09:12 | Emergency (ER) | payer BC ==
[~2019-08-03] VITALS: Ht 172.7 cm; Wt 86.2 kg
[~2019-08-03 09:12] MED LIST: CARV12.5 PO; CLON0.2T43 PO; DILT-135; FERR-13 PO; INSU100S22 SC
[2019-08-03 09:20] VITALS: BP 169/99
--- NOTE | 2019-08-03 09:30 | NUR ---
walk to bed 4 with steady gait.
--- NOTE | 2019-08-03 09:31 | NUR ---
HEMODIALYSIS ACCESS REFERRAL FOR CATHETER REMOVAL. HEMODIALYSIS CATH TO RIGHT UPPER CHEST. FBS 127.PT AWAKE ,ALERT , AFIBRILE , AMBULATORY WITH STEADY GAIT , SCE , CBS BLF , CLEAN AND INTACT CVC DRESSING RT CHEST. MED HX: ESRD WITH PD AT HOME, DM, HTN
--- NOTE | 2019-08-03 09:31 | NUR ---
dr lloyd at bedside evaluating pt.
[2019-08-03] MEDS ORDERED: LIDOCAINE MPF 1% 5 ML ONE (10:09)
[2019-08-03] MEDS ORDERED: LIDOCAINE MPF 1% 10 MG/ML VIAL INJ ONE (10:10)
--- NOTE | 2019-08-03 10:15 | NUR ---
dr vidal at bedside removing cvc at rt chest. pt signed consent .
--- NOTE | 2019-08-03 10:35 | NUR ---
dressing place on site , no active bleeding ,pt awake , alert ,comfortable in bed.
[2019-08-03 11:45] VITALS: BP 169/99
--- NOTE | 2019-08-03 11:46 | NUR ---
Patient discharged with v/s stable. Written and verbal after care instructions given and explained. Patient verbalized understanding. Ambulatory with steady gait. All questions addressed prior to discharge. Advised to follow up with PMD.
== END 2019-08-03 11:45 | disposition home or self-care (01) ==
LOC: MED 09:12
DX: E11.22 Type 2 diabetes mellitus with diabetic chronic kidney disease (principal); I10 Essential (primary) hypertension; Z49.01 Encounter for fitting and adjustment of extracorporeal dialysis catheter; Z79.899 Other long term (current) drug therapy; Z79.4 Long term (current) use of insulin
CPT/HCPCS: 71045; 99283; J2001; Q0092